=== PATIENT | female | born 1960 | race African-American/Black ===

== ENCOUNTER 2023-10-29 13:41 | Emergency (ER) | payer MEDICAID, SELFPAY ==
[2023-10-29] VITALS (17 sets, daily range): BP systolic 113–159; BP diastolic 63–92; PULSE 92–110; RESP 18; TEMP 37.4–38.8; O2SAT 92–99; BMI 33.6
--- NOTE | 2023-10-29 16:46 | CRLHL7_ITS ---
For Patients: As a result of the 21st Century Cures Act, medical imaging exams and procedure reports are released immediately into your electronic medical record. You may view this report before your referring provider. If you have questions, please contact your health care provider. INDICATION: Left chest pain, fever, HIV positive. TECHNIQUE: CT chest PE was acquired with 95 cc Omnipaque 350 IV contrast. Permanently recorded images are archived. COMPARISON: None. FINDINGS: Heart and vasculature: Contrast opacification of the pulmonary arterial tree is adequate. Small burden of bilateral acute pulmonary emboli within the inferior lingula right lower lobe posterior basal segment. No evidence for right heart strain. Mild cardiomegaly. Thoracic aorta and pulmonary artery are normal in caliber. Coronary artery calcification. No pericardial effusion. Lungs and pleura: Stranding consolidation in the lower lobes, left greater than right, and to a lesser degree in the inferior lingula. Smaller pleural effusion. No pneumothorax. Lymph nodes/mediastinum: No mediastinal, hilar, or axillary adenopathy. Chest wall: No masses. Thyroid: Grossly unremarkable. Upper abdomen: No acute or significant findings. Bones: Unremarkable for age. IMPRESSION: 1. Small burden of bilateral acute pulmonary emboli within the inferior lingula and right lower lobe posterior basal segment. No evidence for right heart strain. 2. Strandy consolidation in the lower lobes, left greater than right, and to a lesser degree in the inferior lingula. The opacity in the lingula as well as in the posterior basal segment right lower lobe could represent a developing pulmonary infarcts; however, atelectasis and/or infection could appear similar. 3. Small left pleural effusion. Findings discussed with Dr. Mendoza at 6:17 PM PST on 10/29/2023. Please note that all CT scans at this facility use dose modulation, iterative reconstruction, and/or weight-based dosing when appropriate to reduce radiation dose to as low as reasonably achievable. Dictated by Yonatan Low MD @ 10/29/2023 8:19:08 PM (Electronically Signed)
--- NOTE | 2023-10-29 16:58 | ED.GENADULT ---
HPI - General Adult General Date Seen: 10/29/23 Chief complaint: Rib Pain Stated complaint: L rib pain Time Seen by Provider: 10/29/23 16:37 Source: patient and family Mode of arrival: ambulatory Limitations: language barrier History of Present Illness HPI narrative: Patient is a 63-year-old woman here with her sister. She is from [place] originally and speaks a dialect from [place], as well as speaking some [place]. Her sister speaks good [place] and is helping to interpret. 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 She notes pain in her left rib cage, she says that she was mopping yesterday and feels that she may have pulled a muscle. She does have pain with movement as well as breathing and talking. She has not noted a fever at home but does have a fever here. Denies cough, denies shortness of breath. No lower extremity swelling or pain. No history of DVT or PE. She does have a history of hypertension as well as HIV. According to her sister her viral load has been undetectable. She does not smoke. She has tried Tylenol at home for pain which did not provide a lot of relief. Related Data Previous Rx's Medication Instructions Recorded apixaban 5 mg (74 tabs) tablets in See Rx Instructions PO .COMPLEX 10/29/23 a dose pack (Tapatalk DVT-PE Treat #74 ea 30D Start) doxycycline monohydrate 100 mg 100 mg PO BID #14 caps 10/29/23 capsule Allergies Allergy/AdvReac Type Severity Reaction Status Date / Time No Known Drug Allergies Allergy Verified 10/29/23 19:26 Review of Systems Status of ROS: Reports: 10 or more systems reviewed and unremarkable except as noted in History and below [facility] Social History service: No Exam Narrative: Exam Narrative: Vital signs as noted above. In general, an alert, nontoxic woman, breathing easily. Head: Normocephalic, atraumatic. Eyes: Pupils are equal reactive. Extraocular movements are full. Conjunctivae are normal. ENT: Mucous membranes are moist. Neck: Supple without lymphadenopathy. Heart: Regular rate and rhythm. No murmur or rub. She notes significant chest wall tenderness diffusely throughout the left chest and breast. I do not see any erythema or edema, evidence of abscess or rash. Lungs: A few scattered crackles. No wheezes, no increased work of breathing. Abdomen: Soft and nontender. Extremities: Well perfused. No edema. No calf tenderness. Pulses intact. Neurologic: Patient is alert and oriented to person and place. Speech is fluent. Face is symmetric. Moves all extremities equally. Affect: Normal. Skin: Warm and dry. Well perfused. Const: Vital Signs, click to edit/add: Vital Signs - 24 hr 10/29/23 14:05 10/29/23 17:58 10/29/23 17:59 Temperature 101.9 F H Pulse Rate Pulse Rate [Pulse Oximeter] 110 H Respiratory Rate 18 Blood Pressure Blood Pressure [Ri ght Upper Arm] 159/92 H Pulse Oximetry 97 98 97 Oxygen Delivery Me thod Room Air 10/29/23 18:00 10/29/23 18:02 10/29/23 18:10 Temperature Pulse Rate 98 Pulse Rate [Pulse Oximeter] Respiratory Rate Blood Pressure Blood Pressure [Ri ght Upper Arm] Pulse Oximetry 96 96 97 [facility] 10/[facility]/23 18:32 10/29/23 18:45 10/29/23 18:50 Temperature Pulse Rate 94 97 Pulse Rate [Pulse Oximeter] Respiratory Rate Blood Pressure 126/70 Blood Pressure [Ri ght Upper Arm] Pulse Oximetry 97 99 Oxygen Delivery Me thod 10/29/23 19:00 10/29/23 19:02 10/29/23 19:05 Temperature 99.3 F Pulse Rate 92 94 Pulse Rate [Pulse Oximeter] Respiratory Rate Blood Pressure Blood Pressure [Ri ght Upper Arm] Pulse Oximetry 95 98 Oxygen Delivery Me thod 10/29/23 19:07 10/29/23 19:23 10/29/23 19:30 Temperature 99.3 F Pulse Rate 99 95 Pulse Rate [Pulse Oximeter] Respiratory Rate Blood Pressure Blood Pressure [Ri ght Upper Arm] Pulse Oximetry 92 92 Oxygen Delivery Me thod 10/29/23 19:32 10/29/23 19:40 Temperature Pulse Rate 95 94 Pulse Rate [Pulse Oximeter] Respiratory Rate Blood Pressure 113/63 Blood Pressure [Ri ght Upper Arm] Pulse Oximetry 95 94 Oxygen Delivery Me thod Documenting provider has reviewed patient's vital signs: yes Course Course ED Course: patient presents with reproducible left chest wall tenderness but with a temperature of 102? and history of HIV positivity although it sounds like that is well managed. She does note however that she has not been seen for her HIV in a very long time. I do not see anything externally to suggest an infectious process in the chest wall. Shingles would be a consideration, although her pain is fairly diffuse throughout the chest and does not seem to be in 1 dermatome at least right now. With her age and vital signs, I did recommend that we do some additional workup to rule out other possible causes for her pain such as pericarditis, pneumonia, pulmonary embolism, pulmonary abscess, etcetera. There was significant difficulty establishing an IV in this patient and so was several hours before CT scan could be done. In the meantime I elected to order a D-dimer instead, supposing that if it was negative we might be able to get away with just a chest x-ray. Her other labs had returned fairly unremarkable, she is mildly anemic with a hemoglobin of 10.8, baseline unknown. Her white blood cell count was normal at 10.4. Platelet count of 799155. Metabolic panel was entirely within normal limits, lactate was 1.3. LFTs were normal, CRP was mildly elevated at 4.4. COVID, influenza and RSV were all negative under point of care troponin was 0.03. Her D-dimer ultimately returned at over 13, and fortunately they were able to establish an IV so we were able to get a CT scan. By my review, does appear that she has bilateral small PE, final radiology read is as follows:FINDINGS: Heart and vasculature: Contrast opacification of the pulmonary arterial tree is adequate. Small burden of bilateral acute pulmonary emboli within the inferior lingula right lower lobe posterior basal segment. No evidence for right heart strain. Mild cardiomegaly. Thoracic aorta and pulmonary artery are normal in caliber. Coronary artery calcification. No pericardial effusion. Lungs and pleura: Stranding consolidation in the lower lobes, left greater than right, and to a lesser degree in the inferior lingula. Smaller pleural effusion. No pneumothorax. Lymph nodes/mediastinum: No mediastinal, hilar, or axillary adenopathy. Chest wall: No masses. Thyroid: Grossly unremarkable. Upper abdomen: No acute or significant findings. Bones: Unremarkable for age. IMPRESSION: 1. Small burden of bilateral acute pulmonary emboli within the inferior lingula and right lower lobe posterior basal segment. No evidence for right heart strain. 2. Strandy consolidation in the lower lobes, left greater than right, and to a lesser degree in the inferior lingula. The opacity in the lingula as well as in the posterior basal segment right lower lobe could represent a developing pulmonary infarcts; however, atelectasis and/or infection could appear similar. 3. Small left pleural effusion. Certainly possible that those areas of consolidation represent pulmonary infarct, but with her high fever on arrival and history of HIV I did elect as to cover her with an antibiotic as well. Will start her on Eliquis. Her troponin is normal, there is no evidence of right heart strain on CT, and think it is reasonable to let her go home. I did ask her to follow up with her clinic this week, she sees someone in [place] according to her sister. Return any time for re-evaluation in the ER for significant worsening symptoms. She can take Tylenol, I did give her some oxycodone, 8., out of [facility] if she has more significant pain. Advised against taking nonsteroidals at this time secondary to the Xarelto. She had her 1st dose of Eliquis and doxycycline in the emergency department here. She also requested and was given a note for a few days off of work. Vital Signs Vital signs: Initial Vital Signs Temperature 101.9 F H 10/29/23 14:05 Temperature Source Temporal Artery Scan 10/29/23 14:05 Pulse Rate 110 H 10/29/23 14:05 Respiratory Rate 18 10/29/23 14:05 Blood Pressure 159/92 H 10/29/23 14:05 Blood Pressure Mean 114 H 10/29/23 14:05 Blood Pressure Position Sitting 10/29/23 14:05 Pulse Oximetry 97 10/29/23 14:05 Oxygen Delivery Method Room Air 10/29/23 14:05 Vital Signs Temperature 101.9 F H 10/29/23 14:05 Pulse Rate 110 H 10/29/23 14:05 Respiratory Rate 18 10/29/23 14:05 Blood Pressure 159/92 H 10/29/23 14:05 Pulse Oximetry 97 10/29/23 14:05 Oxygen Delivery Method Room Air 10/29/23 14:05 Temperature 99.3 F 10/29/23 19:07 Pulse Rate 94 10/29/23 19:40 Respiratory Rate 18 01/28/24 14:05 Blood Pressure 113/63 01/28/24 19:32 Pulse Oximetry 94 10/29/23 19:40 Oxygen Delivery Method Room Air 10/29/23 14:05 Medications Administered Medications: Discontinued Medications Generic Name Dose Route Start Last Admin Trade Name Mikael PRN Reason Stop Dose Admin Acetaminophen 1,000 mg 10/29/23 16:46 10/29/23 17:00 Acetaminophen 500 Mg Tablet PO 10/29/23 16:47 1,000 mg ONCE ONE Administration Sodium Chloride 1,000 mls @ 1,000 mls/hr 10/29/23 17:45 10/29/23 20:06 0.9 % Sodium Chloride 1000 Ml IV 10/29/23 18:44 Infused .Q1H MATEO Infusion Ketorolac Tromethamine 15 mg 10/29/23 16:46 10/29/23 17:00 Ketorolac 15 Mg/Ml Inj IVP 10/29/23 16:47 15 mg ONCE ONE Administration Medical Decision Making Lab Data Labs: Lab Results 10/29/23 10/29/23 Range/Units 17:10 17:28 WBC 10.40 (4.50-11.00) K/uL RBC 3.76 L (4.00-5.20) m/uL Hgb 10.8 L (12.0-16.0) gm/dL Hct 34.5 (33.0-51.0) % MCV 92 (80-100) fL MCH 29 (26-34) pg MCHC 31 L (32-36) gm/dL RDW Coeff of Ruperto 13.0 (11.5-15.5) % Plt Count 291 (140-440) K/uL Neut % (Auto) 54.9 (42.0-72.0) % Lymph % (Auto) 37.7 (20-44) % Garrard % (Auto) 7.0 (0.0-11.0) % Eos % (Auto) 0.1 (0.0-7.0) % Baso % (Auto) 0.0 (0.0-3.0) % Neut # (Auto) 5.71 (1.7-7.0) K/uL Lymph # (Auto) 3.92 H (0.90-2.90) K/uL Garrard # (Auto) 0.70 (0.00-0.90) K/UL Eos # (Auto) 0.01 (0.00-0.50) K/uL Baso # (Auto) 0.00 (0.00-0.30) K/uL Abs Immat Gran (auto) 0.03 (0.00-0.30) K/uL Imm/Tot Granulo (auto) 0.3 % D-Dimer Quant (PE/DVT) 13.85 H (0.00-0.50) ug/ml Sodium 139 (135-149) mmol/L Potassium 4.0 (3.6-5.1) mmol/L Chloride 105 (96-114) mmol/L Carbon Dioxide 23 (20-32) mmol/L Anion Gap 11 (7-15) mEq/L BUN 16 (7-30) mg/dL Creatinine 1.2 (0.5-1.5) mg/dL Estimated Creat Clear 51.54 Estimated GFR 51 ml/min Glucose 98 (60-115) mg/dL Lactate 1.3 (0.5-1.9) mmol/L Calcium 9.1 (8.4-10.6) mg/dL Total Bilirubin 1.1 (0.1-1.5) mg/dL Direct Bilirubin 0.2 (0.0-0.5) mg/dL AST 26 (12-35) U/L ALT 14 (4-35) U/L Alkaline Phosphatase 63 (40-150) U/L C-Reactive Protein 4.4 H (0.5-1.0) mg/dL Total Protein 9.0 H (6.0-8.3) g/dL Albumin 4.1 (3.3-5.0) g/dL SARS-CoV-2 (PCR) Negative SARS-CoV-2 (Negative) Influenza Type A (PCR) Negative PCR FLU A (Negative) Influenza Type B (PCR) Negative PCR FLU B (Negative) RSV (PCR) Negative PCR RSV (Negative) POC Troponin I 0.03 (0.01-0.04) ng/ml Discharge Plan Discharge Clinical Impression: Pulmonary embolism Patient Disposition: Home, Self-Care Condition: Improved Instructions: Pulmonary Embolism (ED) Additional Instructions: Your CT scan shows evidence of blood clots in your lungs, as well as what may simply be compression of the lung tissue but could also be pneumonia. Because you had a fever, am going to cover you for possible pneumonia in addition to starting you on a blood thinner for the blood clots. I would like you to be seen in clinic this coming week for recheck. Return to the ER at any time for acute worsening, severe shortness of breath, fainting, or other new concerns. Prescriptions: New Eliquis DVT-PE Treat 30D Start 5 mg (74 tabs) tablets,dose pack See Rx Instructions .ROUTE .COMPLEX Qty: 74 0RF Rx Instructions: orally per package directions doxycycline monohydrate 100 mg capsule 100 mg PO BID Qty: 14 0RF Follow Up/Referrals: Provider,Not a Local [Primary Care Provider] - Stand Alone Forms: [facility] Info Instructions
[2023-10-29] MEDS: ACETAMINOPHEN 500 MG TABLET 1000 MG PO (17:00)
[2023-10-29] MEDS: KETOROLAC 15 MG/ML inj IVP (17:00)
[2023-10-29 17:30] LABS: Troponin, Point-of-Care* 0.03 ng/ml (0.01-0.04)
[2023-10-29 17:36] LABS: Lactate Sepsis w/Reflex* 1.3 mmol/L (0.5-1.9)
[2023-10-29 17:37] LABS: Eosinophils Absolute Auto 0.01 K/uL (0.00-0.50); Eosinophils Percent Auto 0.1 % (0.0-7.0); Hematocrit 34.5 % (33.0-51.0); Hemoglobin* 10.8 gm/dL (12.0-16.0); Immature Granulocytes Abs Auto 0.03 K/uL (0.00-0.30); Immature Granulocytes Pct Auto 0.3 %; Lymphocytes Absolute Auto 3.92 K/uL (0.90-2.90); Lymphocytes Percent Auto 37.7 % (20-44); Mean Corpuscular HGB Conc 31 gm/dL (32-36); Mean Corpuscular Hemoglobin 29 pg (26-34); Mean Corpuscular Volume 92 fL (80-100); Neutrophils Absolute Auto 5.71 K/uL (1.7-7.0); Neutrophils Percent Auto 54.9 % (42.0-72.0); Platelet Count* 291 K/uL (140-440); Red Blood Count 3.76 m/uL (4.00-5.20)
[2023-10-29 17:41] LABS: Slide Review Reflex No
[2023-10-29 17:54] LABS: Albumin* 4.1 g/dL (3.3-5.0); Chloride* 105 mmol/L (96-114)
[2023-10-29 17:55] LABS: Sodium* 139 mmol/L (135-149)
[2023-10-29 17:57] LABS: Creatinine* 1.2 mg/dL (0.5-1.5); Est. Creatinine Clearance* 51.54; Estimated Glomerular Filt Rate 51 ml/min
[2023-10-29 17:58] LABS: Alanine Aminotransferase* 14 U/L (4-35); Alkaline Phosphatase* 63 U/L (40-150); Anion Gap 11 mEq/L (7-15); Aspartate Amino Transferase* 26 U/L (12-35); Bilirubin Direct* 0.2 mg/dL (0.0-0.5); Bilirubin Total* 1.1 mg/dL (0.1-1.5); Blood Urea Nitrogen* 16 mg/dL (7-30); Calcium* 9.1 mg/dL (8.4-10.6); Carbon Dioxide* 23 mmol/L (20-32); Glucose* 98 mg/dL (60-115)
[2023-10-29 18:01] LABS: C Reactive Protein* 4.4 mg/dL (0.5-1.0)
[2023-10-29 18:23] LABS: PCR FLU A Negative PCR FLU A (Negative); PCR FLU B Negative PCR FLU B (Negative); PCR RSV Negative PCR RSV (Negative); SARS PCR* Negative SARS-CoV-2 (Negative)
[2023-10-29] MEDS: 0.9 % SODIUM CHLORIDE 1000 ml 1,000 ML IV (19:01)
[2023-10-29 19:09] LABS: D Dimer Quantitative* 13.85 ug/ml (0.00-0.50)
[2023-10-29] MEDS: APIXABAN 5 MG TABLET PO (21:14)
[2023-10-29] MEDS: DOXYCYCLINE HYCLATE 100 MG PO (21:14)
== END 2023-10-29 21:15 | disposition home or self-care (01) ==
PROVIDERS: Emergency Provider Emergency Medicine
DX: I26.94 Multiple subsegmental thrombotic pulmonary emboli without acute cor pulmonale (principal); Z21 Asymptomatic human immunodeficiency virus [HIV] infection status
CPT/HCPCS: 36415; 71275; 80048; 80076; 83605; 84484; 85025; 85379; 86140; 87040; 87631; 93005; 96361; 96374; 99284; 99285; A9270; J1885; J7030; Q9967